=== PATIENT | male | born 1990 | race Caucasian/White ===

== ENCOUNTER 2022-08-23 18:10 | Outpatient (CLI) | payer OTHER, SELFPAY ==
--- NOTE | ~2022-08-23 | XR_ITS ---
Right elbow Technique: AP, oblique, and lateral views were obtained. Clinical History: Pain Findings: No acute fracture or dislocation is seen. Osseous alignment is anatomic. Joint spaces are p reserved. There is no displacement of the fat pads, and soft tissues are unremarkable. Impression: Unremarkable radiographs. Reviewed, dictated and finalized at location . Impression: Unremarkable radiographs.
== END 2022-08-23 18:11 | disposition home or self-care (01) ==
LOC: CHSIMG 18:17
PROVIDERS: PCP Family Medicine; Visit Provider Family Medicine
DX: M25.521 Pain in right elbow (principal)
CPT/HCPCS: 73080

== ENCOUNTER 2022-10-16 13:55 | Outpatient (CLI) | payer OTHER, SELFPAY ==
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
== END 2022-10-16 13:56 | disposition home or self-care (01) ==
LOC: CHSIMG 13:57
PROVIDERS: PCP Family Medicine; Visit Provider Family Medicine
DX: M79.641 Pain in right hand (principal)
CPT/HCPCS: 73130

== ENCOUNTER 2024-09-13 21:27 | Emergency (ER) | payer OTHER, SELFPAY ==
[2024-09-13 21:27] VITALS: BP 132/84; PULSE 75; RESP 16; TEMP 36.8; O2SAT 97
--- OUTSIDE RECORDS SUMMARY | 2024-09-13 21:29 | XMS_ITS | Clinical Summary ---
Author Organization [facility] Address [facility] [place] [address] Care Team Providers Care Import Export Manager Name Role Phone None, Provider MD Primary Care Provider Unavaila ble Allergies Active Allergy Reactions Criticality Noted Date Comments Pecans Itching 03/07/2021 Medications No known medications Social History Tobacco Use Types Packs/Day Years Used Date Smoking Tobacco: Never Smokeless Tobacco: Never Alcohol Use Standard Drinks/Week Comments Yes 0 (1 standard drink = 0.6 oz pur e alcohol) Sex and Gender Information Value Date Recorded Sex Assigned at Not on file Legal 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 Gender Identity Not on file Sexual Orientation Not on file Last Filed Vital Signs Vital Sign Reading Time Taken Comments Blood Pressure 136/81 03/07/2021 3:01 PM TOURIST CABIN KEEPER Pulse 73 03/07/2021 3:01 PM TOURIST CABIN KEEPER Temperature 36.4 C (97.6 F) 03/07/2021 3:01 PM TOURIST CABIN KEEPER Respiratory Rate 16 03/07/2021 3:01 PM TOURIST CABIN KEEPER Oxygen Saturation 100% 03/07/2021 3:01 PM TOURIST CABIN KEEPER Inhaled Oxygen Concentration - - Weight 104.3 kg (230 lb) 03/07/2021 3:01 PM TOURIST CABIN KEEPER Height 190.5 cm (6' 3) 03/07/2021 3:01 PM TOURIST CABIN KEEPER Body Mass Index 28.75 03/07/2021 3:01 PM TOURIST CABIN KEEPER Plan of Treatment Health Maintenance Due Date Last Done Comments Annual Physical 07/29/1995 Hepatitis C 2010 DTaP, Tdap and Td Vaccines (4 - Tdap) 07/29/2011 01/17/1994, 06/20/1993, 01/18/1993, Additional history exists COVID-19 Vaccine ( season) 2023 Hepatitis B Vaccines Completed 08/22/1993, 1992, 1992 HPV Vaccines Aged Out No longer eligi ble based on patient's age to complete this topic Meningococcal B Vaccine Aged Out No l onger eligible based on patient's age to complete this topic Meningococcal Vaccine Aged Out No miladys lito eligible based on patient's age to complete this topic Pneumococcal Vaccine: Pediatrics (0 to 5 Years) and At-Risk Patients (6 to 49 Years) Aged Out No longer eligible based on patient's age to complete this topic RSV Immunizations Under 20 Months Aged Out No longer eligible based on patient's age to complete this topic Insurance [employer] Care Teams Import Export Manager Relationship Specialty Start Date End Date None, Provider, PCP - General 03/07/21
--- NOTE | 2024-09-13 21:37 | ED_ITS ---
HPI - Dental/Oral General Chief complaint: Dental/Oral Stated complaint: tooth pain Time Seen by Provider: 09/13/24 21:33 Source: patient and family Mode of arrival: ambulatory Limitations: no limitations History of Present Illness MD Complaint: tooth pain Teeth map: 2 1. Tender with surrounding gum inflammation Onset (ago): day(s) Duration: constant Severity: moderate Severity scale (1-10): 5 Relieving factors: nothing Exacerbating factors: nothing Context: history of dental caries Review of Systems 2 Review of Systems: All systems reviewed & are unremarkable except as noted in HPI and below PMFSH Past Medical History Medical History Patient denies medical problems Exam 2 Const: General: healthy appearing and no acute distress Nutritional Appearance: well nourished Orientation/consciousness: patient oriented x3 Limitations: no limitations HENMT: Head: normal to inspection Other: tender right submandibular gland Eyes: Conjunctivae: conjunctivae normal Pupils: Equal, round and reactive pupils present Neck: Neck: normal visual inspection and lymphadenopathy Chest: Chest palpation & inspection: normal inspection of the chest Resp: Effort & Inspection: normal respiratory effort Auscultation: clear to auscultation bilaterally Cardio: Rate: regular rate Rhythm: regular rhythm GI: GI Palp: Yes Soft to palpation Auscultation: normal bowel sounds Course Course Emergency Course: administered amoxicillin and Motrin 800mg and advised patient to follow with his dentist Critical Care Time Critical Care Time Critical Care Time: No Discharge Plan Discharge Clinical Impression: Toothache, Dental abscess Patient Disposition: Home Condition: Stable Instructions: Antibiotic Form, Dental Abscess (ED) Additional Instructions: advised patient to take medication as prescribed and follow with dentist as soon as possible Patient Language: Bahamian Prescriptions: New amoxicillin 500 mg tablet 500 mg PO TID Qty: 30 0RF naproxen 500 mg tablet 500 mg PO BID PRN (Reason: pain) Qty: 14 0RF Follow-up/Referrals: Noel Rice MD [Primary Care Provider] - Stand Alone Forms: Work/School Release IP Time of Disposition: 21:40
[2024-09-13] MEDS: AMOXICILLIN 500 MG CAPSULE PO (21:50)
[2024-09-13] MEDS: IBUPROFEN 400 MG TABLET 800 MG PO (21:50)
--- OUTSIDE RECORDS SUMMARY | 2024-09-13 21:50 | XMS_ITS | Clinical Summary ---
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 PHYSICIAN Gender Identity Not on file Sexual Orientation Not on file Last Filed Vital Signs Vital Sign Reading Time Taken Comments Blood Pressure 136/81 03/07/2021 3:01 PM GI PHYSICIAN Pulse 73 03/07/2021 3:01 PM GI PHYSICIAN Temperature 36.4 C (97.6 F) 03/07/2021 3:01 PM GI PHYSICIAN Respiratory Rate 16 03/07/2021 3:01 PM GI PHYSICIAN Oxygen Saturation 100% 03/07/2021 3:01 PM GI PHYSICIAN Inhaled Oxygen Concentration - - Weight 104.3 kg (230 lb) 03/07/2021 3:01 PM GI PHYSICIAN Height 190.5 cm (6' 3) 03/07/2021 3:01 PM GI PHYSICIAN Body Mass Index 28.75 03/07/2021 3:01 PM GI PHYSICIAN Plan of Treatment Health Maintenance Due Date [...] Insurance [employer] Care Teams Adjutant General Relationship Specialty Start Date End Date None, Provider, PCP - General 03/07/21
== END 2024-09-13 22:25 | disposition home or self-care (01) ==
LOC: CHSED 21:48
PROVIDERS: Emergency Provider Emergency Medicine; PCP Family Medicine
DX: K04.7 Periapical abscess without sinus (principal)
CPT/HCPCS: 99283; A9270